=== PATIENT | female | born 1990 | race Two or more races ===

== ENCOUNTER 2022-03-10 08:57 | Emergency (ER) | payer MEDICAID ==
[~2022-03-10] VITALS: Ht 172.7 cm; Wt 113.0 kg
[2022-03-10] MEDS ORDERED: ONDANSETRON HCL 4MG/2ML INJ IV ONE ×2 (09:45→14:00)
[2022-03-10] MEDS ORDERED: HALOPERIDOL LACTATE 5MG/ML VIAL IM ONE (09:45)
[2022-03-10] MEDS ORDERED: MORPHINE SULFATE 4 MG/ML CPJ (NOT FOR IM USE) IV ONE ×2 (09:45→12:45)
[2022-03-10] MEDS ORDERED: DIPHENHYDRAMINE 50MG/ML VIAL IV ONE (09:45)
[2022-03-10 09:58] VITALS: BP 109/54
[2022-03-10 10:04] LABS: CHLORIDE 105 mEq/L (98-107)
[2022-03-10 10:05] LABS: BASOPHILS % 0.8 % (0.0-2.0); EOSINOPHILS % 0.2 % (0.0-5.0); HEMATOCRIT. 39.1 % (36.0-48.0); HEMOGLOBIN. 12.9 g/dL (12.0-16.0); LYMPHOCYTES % 16.2 % (20.0-50.0); MEAN CORPUSCULAR VOLUME 88.3 fL (81.0-99.0); MEAN PLATELET VOLUME 8.7 fl (7.4-10.4); MONOCYTES % 3.1 % (2.0-8.0); NEUTROPHILS % 79.7 % (40.0-76.0); PLATELET 327 x1000/uL (130-400); RED BLOOD CELL COUNT 4.43 mill/uL (4.2-5.4); RED CELL DISTRIBUTION WIDTH 14.5 % (11.6-14.6)
[2022-03-10 10:10] LABS: ETHANOL BLOOD < 10 mg/dL
[2022-03-10] MEDS ORDERED: VISCOUS LIDOCAINE 2% 15 ML UDC MM STA (10:19)
[2022-03-10] MEDS ORDERED: MAGNESIUM/ALUMINUM HYDROXIDE/SIMETHICONE 30ML UDC PO ONE (10:30)
[2022-03-10] MEDS ORDERED: KETOROLAC 30MG/ML VIAL IV ONE (10:30)
[2022-03-10] MEDS ORDERED: FAMOTIDINE 20MG/2ML VIAL IV ONE (10:30)
[2022-03-10 10:35] LABS: HCG SCREEN NEGATIVE
[2022-03-10 10:55] LABS: CLARITY URINE CLEAR (CLEAR); COLOR URINE YELLOW (YELLOW); KETONES URINE 3+ (NEGATIVE); LEUKOCYTE ESTERASE URINE NEGATIVE (NEGATIVE); NITRITE URINE NEGATIVE (NEGATIVE); OCCULT BLOOD URINE NEGATIVE (NEGATIVE); PH URINE 6.5 (4.5-8.0); PROTEIN URINE TRACE (NEGATIVE); SPECIFIC GRAVITY URINE 1.033 (1.005-1.030)
[2022-03-10] MEDS ORDERED: FAMO40TA70 MT (12:20)
[2022-03-10] MEDS ORDERED: PANTOPRAZOLE SODIUM 40 MG/VIAL IV ONE (12:45)
[2022-03-10 14:05] LABS: *AMPHETAMINES SCREEN URINE NEGATIVE (NEGATIVE); *BARBITURATES SCREEN URINE NEGATIVE (NEGATIVE); *BENZODIAZEPINES SCREEN URINE NEGATIVE (NEGATIVE); *COCAINE SCREEN URINE NEGATIVE (NEGATIVE); METHADONE URINE SCREEN NEGATIVE (NEGATIVE); PHENCYCLIDINE URINE SCREEN NEGATIVE (NEGATIVE)
[2022-03-10 14:16] LABS: CANNABINOID URINE SCREEN PRESUMTIVE POSITIVE (NEGATIVE); OPIATES URINE SCREEN PRESUMTIVE POSITIVE (NEGATIVE)
[2022-03-10 15:52] LABS: T4 FREE 1.29 ng/dL (0.76-1.46)
[2022-03-10 23:08] LABS: VITAMIN B12 SERUM 312 pg/mL (211-911)
== END 2022-03-10 14:35 | disposition home or self-care (01) ==
LOC: ER 08:57
DX: F12.188 Cannabis abuse with other cannabis-induced disorder (principal); F91.8 Other conduct disorders; R10.2 Pelvic and perineal pain; K21.9 Gastro-esophageal reflux disease without esophagitis; D72.829 Elevated white blood cell count, unspecified
CPT/HCPCS: 36415; 74176; 76856; 80053; 80305; 80320; 81003; 82607; 82746; 83540; 83550; 83690; 84439; 84443; 84703; 85025; 96372; 96374; 96375; 96376; 99284; C9113; J1200; J1630; J1885; J2270; J2405; G0480